=== PATIENT | male | born 1985 | race Caucasian/White ===

== ENCOUNTER 2017-06-02 13:42 | Emergency (ER) | payer SELFPAY ==
[~2017-06-02] VITALS: Ht 182.8 cm; Wt 70.3 kg
[2017-06-02] MEDS ORDERED: Motrin,Rufen800 MG PO (14:10)
[2017-06-02] MEDS ORDERED: AMOXICILLIN500 M2 PO (14:10)
== END 2017-06-02 14:26 | disposition home or self-care (01) ==
LOC: ED 13:42
DX: K08.89 Other specified disorders of teeth and supporting structures (principal); F17.200 Nicotine dependence, unspecified, uncomplicated